=== PATIENT | female | born 1945 | race Caucasian/White ===

== ENCOUNTER → 2019-06-02 | Outpatient (CLI) | payer MEDICARE, OTHER ==
[2019-06-02 13:54] LABS: BASOPHILS % (AUTO) 0 % (0-10); EOSINOPHILS # (AUTO) 0.2 10^3/uL (0.0-0.3); EOSINOPHILS % (AUTO) 3 % (0-10); HEMATOCRIT 35 % (35-52); HEMOGLOBIN 11.9 G/DL (11.5-16.0); LYMPHOCYTES # (AUTO) 1.8 X 10^3 (1.0-4.0); LYMPHOCYTES % (AUTO) 33 % (12-44); MEAN CORPUSCULAR HEMOGLOBIN 31 PG (25-34); MEAN CORPUSCULAR HGB CONC 34 G/DL (32-36); MEAN CORPUSCULAR VOLUME 91 FL (80-99); MEAN PLATELET VOLUME 10.2 FL (7.4-10.4); MONOCYTES # (AUTO) 0.6 X 10^3 (0.0-1.0); MONOCYTES % (AUTO) 11 % (0-12); NEUTROPHILS # (AUTO) 2.9 X 10^3 (1.8-7.8); NEUTROPHILS % (AUTO) 54 % (42-75); PLATELET COUNT 265 10^3/uL (130-400); RED CELL DISTRIBUTION WIDTH 12.3 % (10.0-14.5); WHITE BLOOD COUNT 5.5 10^3/uL (4.3-11.0)
[2019-06-02 14:11] LABS: ALBUMIN 4.1 GM/DL (3.2-4.5); BILIRUBIN,TOTAL 0.4 MG/DL (0.1-1.0); CALCIUM 9.3 MG/DL (8.5-10.1); CREATININE SERUM 1.33 MG/DL (0.60-1.30); POTASSIUM 4.1 MMOL/L (3.6-5.0); TOTAL PROTEIN 6.4 GM/DL (6.4-8.2)
[2019-06-02 14:40] LABS: ERYTHROCYTE SEDIMENTATION RATE 1 MM/HR (0-30)
== END ==
LOC: LAB 13:36
PROVIDERS: ATTEND Internal Medicine
DX: R05 Cough (principal); R19.7 Diarrhea, unspecified; R53.83 Other fatigue
CPT/HCPCS: 36415; 80053; 85025; 85652; 87635

== ENCOUNTER → 2020-05-30 | Outpatient (CLI) | payer MEDICARE ==
--- NOTE | 2020-05-30 10:02 | Diagnostic Imaging Report ---
CLINICAL INDICATION: Patient with cervical somatic dysfunction, muscle spasm. EXAM: X-ray of the cervical spine, 6 views. COMPARISON: None. FINDINGS: The odontoid view show no significant abnormality. The odontoid process is intact. There is no acute cervical spine fracture or dislocation. Of note, part of the C6 and all the C7 vertebra is obscured by overlapping anatomical structures on the sagittal view. There are severely hypertrophic anterior spurs at the C4-C6 levels which may be seen with DISH. There is also encroachment upon the hypopharynx due to these hypertrophic spurs. There is bilateral facet arthropathy. There is no prevertebral soft tissue swelling. There is at least moderate left C4-C5, C5-C6, and C6-C7 bony neural foramen narrowing and moderate to severe right C2-C3, C3-C4, C4-C5 neural foramen narrowing due to facet arthropathy and uncinate spurs. IMPRESSION: 1: There is severe multilevel cervical spine degenerative disease, as described above. 2: There are severely hypertrophic anterior spurs at the C4-C6 levels which may be seen with DISH. There is also concern for encroachment upon the hypopharynx. Dictated by: Dictated on workstation # [id number]
== END ==
LOC: RAD 09:12
PROVIDERS: ATTEND Internal Medicine
DX: M47.812 Spondylosis without myelopathy or radiculopathy, cervical region (principal); M48.02 Spinal stenosis, cervical region; M25.70 Osteophyte, unspecified joint
CPT/HCPCS: 72050

== ENCOUNTER → 2020-10-03 | Outpatient (CLI) | payer MEDICARE ==
--- NOTE | 2020-10-03 11:21 | Diagnostic Imaging Report ---
Indication: Fall, neck pain, decreased range of motion COMPARISON: 06/29/2020 FINDINGS: Alignment is stable. There is no subluxation or fracture. Diffuse degenerative changes are present. There is no osseous lesion. IMPRESSION: 1. No traumatic malalignment or fracture. 2. Stable degenerative disc disease and facet joint arthropathy. Dictated by: Dictated on workstation # [id number]
== END ==
LOC: RAD 08:29
PROVIDERS: ATTEND Internal Medicine
DX: M50.33 Other cervical disc degeneration, cervicothoracic region (principal); M47.812 Spondylosis without myelopathy or radiculopathy, cervical region
CPT/HCPCS: 72050

== ENCOUNTER → 2021-10-17 | Outpatient (CLI) | payer MEDICARE ==
[~2021-10-17] MED LIST: CATHETER FLUSH 10 ML SYR IVP PRN; REGADENOSON 0.4 MG/5 ML SYR (LEXISCAN) IV ONE
[2021-10-17 08:10] VITALS: BP 175/69
--- NOTE | 2021-10-17 11:29 | STRESS TEST ---
DATE OF SERVICE: 10/17/2021 RESTING AND POST REGADENOSON TECHNETIUM-99M TETROFOSMIN SPECT CT IMAGING ORDERING PHYSICIAN: Dr. Zazueta. PRIMARY PHYSICIAN: Dr. Zazueta. CLINICAL DIAGNOSES: Hypertension. Baseline images were carried out, following 10.98 mCi of technetium-99m Tetrofosmin. This was followed by 0.4 mg regadenoson and 31.2 mCi of technetium-99m Tetrofosmin for stress imaging. The electrocardiographic portion of the study is reported separately by Dr. Zazueta under whose supervision, the study was carried out. Review of images at rest and following stress does not indicate any distinct perfusion defects consistent with significant myocardial ischemia or infarction. Gated images show normal global left ventricular systolic function with normal regional wall motion. Left ventricular ejection fraction is calculated to be 68%. CONCLUSIONS: 1. No evidence of significant myocardial ischemia or infarction on this study. 2. Normal regional wall motion. 3. Normal global left ventricular systolic function with a calculated ejection fraction of 68%. Job ID: [id number] DocumentID: [id number] Dictated Date: 10/17/2021 10:10:33 Math Tutor Date: 10/17/2021 11:28:36 Dictated By: MARIA LUISA SALCEDO MD, MA, FACP, FACC,
== END ==
LOC: CARD 07:15
PROVIDERS: ATTEND Internal Medicine
DX: I10 Essential (primary) hypertension (principal)
CPT/HCPCS: 78452; 93017; A9502